=== PATIENT | female | born 1975 | race Caucasian/White ===

== ENCOUNTER 2019-02-21 23:26 | Emergency (ER) | payer MEDICAID ==
[~2019-02-21] VITALS: Ht 160 cm; Wt 88.9 kg
[~2019-02-21 23:26] MED LIST: COUGH MED; IBUP200C11; THERAFLU
[2019-02-21 23:32] VITALS: Ht 160 cm; Wt 88.9 kg
[2019-02-22] MEDS ORDERED: CLOT30CR24 TOP (00:23)
[2019-02-22] MEDS ORDERED: NAPR-985 PO (00:23)
--- NOTE | 2019-02-22 00:45 | ERD ---
ER Documentation Chief Complaint Chief Complaint R HAND ITCHING SINCE SATURDAY, R FOOT PAIN X 3 MONTHS HPI 44-year-old female presenting with itching to her right hand. Patient also has pain to her right foot. She states is been going on for the last 3 months. She denies any injuries or falls. She has pain at the sole of her foot hurts worse in the morning with walking. Denies any use of medications for symptoms. Denies any fevers. Patient also has some rash to her right hand which is irritating and itchy. Denies other medical problems. NKDA. Surgical history denies. Social history denies ROS All systems reviewed and are negative except as per history of present illness. Medications Home Meds Active Scripts Clotrimazole* (Clotrimazole* AF) 1% - 30 Gm Cream.gm., 1 APPLIC TOP BID for 7 Days, TUB Prov:DMITRY HECTOR PA-C 02/22/19 Naproxen* (Naprosyn*) 500 Mg Tablet, 500 MG PO BID PRN for PAIN AND/OR INFLAMMATION, #30 TAB Prov:DMITRY HECTOR PA-C 02/22/19 Reported Medications [Cough Med] No Conflict Check 08/26/11 Ibuprofen* (Advil*) 200 Mg Capsule 08/26/11 [Theraflu] No Conflict Check 08/23/11 Allergies Allergies: Coded Allergies: No Known Allergy (Unverified , 08/26/11) PMhx/Soc History of Surgery: Yes (Gall Bladder, kidney stones) Anesthesia Reaction: No Hx Neurological Disorder: No Hx Respiratory Disorders: No Hx Cardiac Disorders: No Hx Psychiatric Problems: No Hx Miscellaneous Medical Probl: No Hx Alcohol Use: No Hx Substance Use: No Hx Tobacco Use: No FmHx Family History: No diabetes, No coronary disease, No other Physical Exam Vitals Vital Signs Date Temp Pulse Resp B/P (MAP) Pulse Ox O2 O2 Flow FiO2 Time Delivery Rate 02/21/19 98.6 68 16 152/60 99 23:32 (90) Physical Exam GENERAL: The patient is well-appearing, well-nourished, in no acute distress CHEST: Clear to auscultation bilaterally. There are no rales, wheezes or rhonchi. HEART: Regular rate and rhythm. No murmurs, clicks, rubs or gallops. EXTREMITIES: Tender to palpation over the right heel. No obvious deformities. Normal flexion and extension. Pulses intact. Compartments soft NEUROLOGIC: Alert and oriented. Cranial nerves II through XII intact. Motor strength in all 4 extremities with 5 out of 5 strength. Sensation grossly intact. Normal speech and gait. Babinski negative. DTR 2+ throughout. SKIN: Erythema noted to the right hand. No lacerations or abrasions. No vesicles or pustules. Procedures/MDM MDM: 44-year-old female presenting with findings consistent with contact dermatitis. I believe patient's foot pain is associated with plantar fasciitis. I have low suspicion for acute fracture dislocation and I do not feel blood work or imaging is indicated. Patient is discharged with supportive medications as well as instructed information. Patient is told to follow-up with primary care. All questions answered at discharge Departure Diagnosis: Primary Impression: Plantar fasciitis Additional Impression: Contact dermatitis Condition: Stable Patient Instructions: Contact Dermatitis, Plantar Fasciitis Referrals: [facility] YOU HAVE RECEIVED A MEDICAL SCREENING EXAM AND THE RESULTS INDICATE THAT YOU DO NOT HAVE A CONDITION THAT REQUIRES URGENT TREATMENT IN THE EMERGENCY DEPARTMENT. FURTHER EVALUATION AND TREATMENT OF YOUR CONDITION CAN WAIT UNTIL YOU ARE SEEN IN YOUR DOCTORS OFFICE WITHIN THE NEXT 1-2 DAYS. IT IS YOUR RESPONSIBILITY TO MAKE AN APPOINTMENT FOR FOLOW-UP CARE. IF YOU HAVE A PRIMARY DOCTOR --you should call your primary doctor and schedule an appointment IF YOU DO NOT HAVE A PRIMARY DOCTOR YOU CAN CALL OUR PHYSICIAN REFERRAL HOTLINE AT IF YOU CAN NOT AFFORD TO SEE A PHYSICIAN YOU CAN CHOSE FROM THE FOLLOWING [facility] [address] [facility] [address] [facility] [address] [facility] [address] [facility] [address] [facility]. [facility]. [address] Additional Instructions: FOLLOW UP WITH YOUR PRIMARY CARE PHYSICIAN TOMORROW.Return to this facility if you are not improving as expected. DMITRY HECTOR PA-C Feb 22, 2019 00:45
[2019-02-22 01:38] VITALS: BP 121/75; PULSE 68; RESP 17
== END 2019-02-22 01:38 | disposition home or self-care (01) ==
LOC: FTE 23:26
DX: M72.2 Plantar fascial fibromatosis (principal); L25.9 Unspecified contact dermatitis, unspecified cause
CPT/HCPCS: 99282